=== PATIENT | male | born 1990 | race Caucasian/White ===

== ENCOUNTER 2017-05-06 11:12 | Emergency (ER) | payer OTHER, SELFPAY ==
[2017-05-06 11:12] VITALS: BP 142/91; PULSE 71; RESP 16; TEMP 36.7; O2SAT 96; BMI 33.4
[2017-05-06 11:19] VITALS: BP 150/93; PULSE 72; RESP 14; O2SAT 97
[2017-05-06] MEDS: Ketorolac 30 MG/ML Syringe IV (12:08)
[2017-05-06] MEDS: 0.9% Normal Saline 1,000 ML 1000 ML IV (12:08)
[2017-05-06] MEDS: Ondansetron 4 MG/2 ML Vial IV (12:08)
[2017-05-06 12:25] LABS: Absolute Lymphocyte Count 1.55 X10^3/ul (0.83-4.51); Absolute Neutrophil Count 8.5 X10^3/uL (2.0-7.7); Basophil# 0.03 X10^3/uL; Basophil% 0.3 % (0-1); Eosinophil# 0.06 X10^3/uL; Eosinophils% 0.6 % (0-5); Hematocrit 47.2 % (40-54); Hemoglobin 16.6 g/dl (13.0-16.5); Lymphocyte # 1.55 X10^3/ul (4.0); Lymphocyte % 14.5 % (19-41); Mean Corp Hgb Conc 35.2 g/gl (32-36); Mean Corpuscular Hgb 30.9 pg (27.0-32.0); Mean Corpuscular Volume 87.7 fL (80-94); Mean Platelet Vol. 9.1 fl (6.2-12.0); Monocyte# 0.57 X10^3/uL; Monocyte% 5.3 % (0-10); Neutrophil # 8.48 X10^3/uL (2.7-7.7); Neutrophil % 79.1 % (47-70); Platelet Count 272 K/mm3 (150-450); RBC Distribution Width CV 12.5 % (11.6-14.6); RBC Distribution Width SD 40.7 fl (35.1-43.9); Red Blood Count 5.38 M/mm3 (4.6-6.2); White Blood Count 10.7 K/mm3 (4.4-11.0)
[2017-05-06 12:26] LABS: POSITIVE COUNT NO; POSITIVE DIFFERENTIAL NO; POSITIVE MORPHOLOGY NO
[2017-05-06 12:44] LABS: AST(SGOT) 36 U/L (15-37); Alanine Aminotransfer ALT/SGPT 59 U/L (16-61); Albumin, Serum 4.3 g/dL (3.2-5.0); Alkaline Phosphatase 73 U/L (45-117); Anion Gap 9 (5-15); BUN 13 mg/dL (7-18); BUN/Creat Ratio 13.1 RATIO (10-20); Bilirubin, Direct 0.13 mg/dL (0.00-0.30); Calcium,Total 9.2 mg/dL (8.5-10.1); Chloride 102 mmol/L (98-107); EST Glomerular Filtration Rate 96 mL/min (>60); Est Glom Filt Rate - Afr Amer 117 mL/min (>60); Estimated Creatinine Clearance 115.58 ml/min; Glucose 113 mg/dL (74-106); Lipase 163 U/L (73-393); Protein, Total 8.3 g/dL (6.4-8.2); Sodium Level 140 mmol/L (136-145)
--- NOTE | 2017-05-06 13:08 | ED.DCSUM_ITS ---
- ER Visit Summary Date of Service: 05/06/17 Chief Complaint: Abdominal pain History of Present Illness: The patient is a 27 M with no primary care physician. He reports that he has abdominal pain that began 2 days ago. It is a continuous stabbing pain is 10 out of 10 at worst 9 out of 10 currently. Is worsened by bending over. It is relieved by remaining still and stretching out. He has been nausea and vomited 6-7 times in the past few hours and 12 times altogether. There is been no blood. He has had approximately 10 episodes of diarrhea in the past 2 days. No blood in his stools or black tarry stools. Patient reports that his children have been vomiting. Has not been camping out of the country. No possible bad food exposure. Does not drink well water. No recent antibiotic use. Physical Examination: Vitals: Stable. Afebrile. General: Well-nourished and well-developed. Head: Normocephalic atraumatic. Neck: Supple, no lymphadenopathy. No JVD. Nontender. Cardiovascular: Regular rate and rhythm. No murmurs. Respiratory: No respiratory distress. Clear to auscultation bilaterally. Abdominal: Soft, mild epigastric/left upper quadrant/left lower quadrant tenderness to palpation, nondistended, normal bowel sounds. No guarding, rebound, or peritoneal signs. Back: Nontender. Extremities: Nontender, no edema. Skin: Normal color, no rash. Neurologic: Alert and oriented ?3. Cranial nerves II through XII are intact. Normal strength and sensation. Psych: Normal affect. Test Results: CBC is marked for hemoglobin 16.6, segmented neutrophils of 79, lymphocytes of 15. Chem-7 is more for glucose of 113. LFTs marked for total protein of 8.3. Lipase is normal. Emergency Department Course and Treatment: Patient was treated with Toradol and Zofran IV. He is resting comfortably. He has had no vomiting or diarrhea while here. He denies any history of fatty food intolerance. He has no right upper quadrant pain. Treatment Plan: The patient will be discharged with Zofran and instructed to follow-up with Dr. Hardy, who is next on the list for no doc, in 1-2 days if not improving. Return to the emergency department for any worsening symptoms. Disposition: To home in improved and stable condition. Impression: 1. Vomiting/diarrhea. 2. Abdominal pain. This note was generated with [employer] dictation software. It may contain incorrect words, spelling, and punctuation that were not noted in review of the chart prior to signing ED Disposition - Plan for ED Patient: Disposition: Home or Assisted Living Chief Complaint: Abd Pain Instructions: ED Vomiting Diarrhea Nonspecific Ad Prescriptions: Ondansetron [Zofran Odt] 4 mg PO Q8H PRN PRN #10 tablet PRN Reason: Nausea Referrals: Kristina Correa MD [STAFF PHYSICIAN] - 1-2 Days if not improving
[2017-05-06 13:36] VITALS: BP 137/77; PULSE 75; RESP 16; O2SAT 96
== END 2017-05-06 13:38 | disposition home or self-care (01) ==
LOC: ED 11:55
PROVIDERS: Emergency Provider Emergency Medicine
DX: R10.13 Epigastric pain (principal); R10.12 Left upper quadrant pain; R10.32 Left lower quadrant pain; R11.2 Nausea with vomiting, unspecified; R19.7 Diarrhea, unspecified
CPT/HCPCS: 80048; 80076; 83690; 85025; 96361; 96374; 96375; 99283; J7030; A4216; J2405

== ENCOUNTER 2017-05-15 04:48 | Emergency (ER) | payer OTHER, SELFPAY ==
[2017-05-15 04:53] VITALS: BP 128/81; PULSE 82; RESP 16; TEMP 36.6; O2SAT 96; BMI 33.0
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
[2017-05-15 06:07] LABS: Carboxyhemoglobin Frac (CO) 2.8 % (0.0-1.5)
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
[2017-05-15 06:26] VITALS: RESP 16
== END 2017-05-15 06:28 | disposition home or self-care (01) ==
PROVIDERS: Emergency Provider Emergency Medicine
DX: T59.811A Toxic effect of smoke, accidental (unintentional), initial encounter (principal); J68.9 Unspecified respiratory condition due to chemicals, gases, fumes and vapors; Y92.214 College as the place of occurrence of the external cause
CPT/HCPCS: 82375; 99283

== ENCOUNTER → 2018-11-04 17:02 | Outpatient (CLI) | payer OTHER, SELFPAY ==
--- NOTE | 2018-11-04 17:10 | RAD_ITS ---
STUDY: X-RAY - RIGHT KNEE REASON FOR EXAM: Male, 28 years old. Pain TECHNIQUE: 5 view(s) of the knee. COMPARISON: None. FINDINGS: Normal visualized distal femur. Normal visualized proximal tibia and fibula. Normal proximal tibiofibular articulation. Normal medial femorotibial compartment. Normal lateral femorotibial compartment. Normal patellofemoral articulation. The soft tissue structures are unremarkable. RAD/Knee 4 or More Views IMPRESSION: Normal x-ray examination of the knee. Electronically Signed: Heladio Byrne MD at 18:45 EDT , Service support ,
== END ==
PROVIDERS: Family Provider Family Medicine; PCP Family Medicine; Referring Provider Family Medicine; Visit Provider Family Medicine
DX: M25.561 Pain in right knee (principal)
CPT/HCPCS: 73564

== ENCOUNTER 2023-04-26 02:23 | Emergency (ER) | payer OTHER, SELFPAY ==
[2023-04-26 02:23] VITALS: BP 99/44; PULSE 70; RESP 17; TEMP 36.6; O2SAT 98; BMI 35.5
--- NOTE | 2023-04-26 02:29 | RAD_ITS ---
EXAM: XR RIGHT HAND COMPLETE, 3 OR MORE VIEWS CLINICAL INDICATION: trauma TECHNIQUE: Frontal, lateral and oblique views of the right hand. COMPARISON: No relevant prior studies available. FINDINGS: BONES/JOINTS: Mildly displaced fracture ulnar aspect of the tuft of the distal phalanx of the third finger. Preservation of the joint space. No sclerotic or destructive changes observed. SOFT TISSUES: Soft tissue swelling distal third finger. No radiopaque foreign body. RAD/Hand Min 3 Views IMPRESSION: 1. Mildly displaced fracture ulnar aspect of the tuft of the distal phalanx of the third finger. 2. Soft tissue swelling distal third finger. Electronically Signed: Juan Miguel Mena MD at 2:50 EST ,
--- NOTE | 2023-04-26 02:42 | EX.ED.UPPERE ---
HPI History of Present Illness Chief Complaint: Upper Extremity Injury Informant: patient Narrative Narrative: Patient is a [id number] male with no significant past medical history. He states approximately 2 hours prior to arrival he was at work and was placing a weight back onto a weight stand when he pinched his right middle finger between the weight and the stand causing trauma to his finger. He states that there is no numbness tingling or weakness but he sustained a laceration and is unsure if this needs closed and therefore comes in for evaluation. Patient states he is unsure of his tetanus status but does not want one updated at this time as he has low concern for that infection [facility] Home Medications amoxicillin 875 mg-potassium clavulanate 125 mg tablet 1 tab PO BID 7 days #14 tabs 04/26/23 [Rx Last Taken Unknown] Allergy/AdvReac Type Severity Reaction Status Date / Time No Known Allergies Allergy Verified 05/15/17 04:50 Surgical History (Updated 05/06/17 @ 10:41 by Yue Machado) History of removal of cyst Social History (Updated 05/06/17 @ 11:06 by Rg ERVIN, PA) Smoking Status: Never smoker alcohol intake: never ROS ROS ED Constitutional Constitutional ED: Denies chills or fever(s) ENT ENT ED: Denies sore throat Cardiovascular Cardiovascular: Denies chest pain Respiratory/Chest Respiratory/Chest: Denies cough or dyspnea Gastrointestinal Gastrointestinal: Denies abdominal pain, diarrhea, nausea or vomiting Genitourinary Genitourinary ED: Denies dysuria Musculoskeletal Musculoskeletal: Reports other Details: Positive right middle finger pain Integumentary Reports other Details: Positive right middle finger laceration Neurologic Neurologic: Denies headache(s), paresthesias or weakness Hematologic/Lymphatic Hematologic/Lymphatic: Denies easy bleeding or easy bruising EXAM Physical Exam Const Vital Signs: 04/26/23 02:23 Temperature 97.9 F Temperature Source Temporal Pulse Rate 70 Respiratory Rate 17 Blood Pressure 99/44 L Blood Pressure Mean 62 Pulse Ox 98 Oxygen Delivery Method Room Air Positive well nourished and well developed General Appearance ED: well developed HEENT HEENT Narrative: Normocephalic atraumatic Eyes PERRL and EOMs intact bilaterally Neck full ROM and supple Resp normal respiratory effort and clear to auscultation bilaterally Cardio regular rate and regular rhythm Extremity Extremity Narrative: Right upper extremity is neurovascularly intact; AIN/PIN are intact and normal No ligamentous or tendon injury noted No obvious bony deformity or joint effusion Patient has a vertical 1.5 cm laceration to the finger pad of the right third digit that is subcutaneous layer deep without foreign body and minimal ooze of blood There is also a approximately 50% subungual hematoma to the nailbed of the right third digit. Remainder of the exam is normal Neuro oriented x3, CN's II-XII intact bilaterally, moves all extremities and no focal motor deficits Sensorium / Orientation: alert Motor Exam: strength 5/5 throughout Psych mental status grossly normal Skin Skin Narrative: Laceration and soft tissue changes to the right third finger as documented above MDM MDM MDM Narrative Medical decision making narrative: Patient presented to the ER with direct trauma/crush injury to the right third digit. Differential diagnosis is for acute fracture versus tendon laceration versus contusion. Secondary to this an x-ray was obtained which showed a tuft fracture to the third digit but as this is only a tuft fracture there is no need for splinting or stabilization. The patient had a subungual hematoma which was approximately 50% of the nail and therefore this was trephinated as documented below. Also based on the laceration and soft tissue swelling it required closure with sutures. The patient did not have ligamentous or tendon injury or signs of arterial injury so there is no need for emergent orthopedic consultation. As he does have a fracture and laceration who placed on prophylactic antibiotics but otherwise is safe for discharge Patient had the right middle finger cleaned with chlorhexidine. It was anesthetized using 8 mL of 2% lidocaine without epinephrine in digital block fashion. The wound was copiously irrigated with normal saline. Then four 4-0 Ethilon sutures were placed in simple interrupted fashion bring the wound together good approximation. Patient also underwent trephination of the right third digit nail providing expulsion of blood underneath the nailbed. Patient tolerated both suturing and trephination well without complication. History & Record Review Discussion w/independent historian: Patient Radiography Diagnostic Testing: X-ray of the right hand as interpreted by the emergency medicine physician reveals a tuft fracture to the third digit Discharge Plan Triage Chief Complaint: Upper Extremity Injury ED Provider: Adilson Sylvester Dx/Rx/DC Orders Clinical Impression: Closed fracture of tuft of distal phalanx of right middle finger, Subungual hematoma, Laceration of finger of left hand Instructions: ED Laceration, Hand: All Closures, ED Subungual Hematoma Prescriptions: New amoxicillin-pot clavulanate 875-125 mg tablet 1 tab PO BID 7 Days Qty: 14 0RF Primary Care Provider: Wali Nevarez Referrals: aWli Nevarez MD [Primary Care Provider] - Activity Restrictions/Additional Instructions: Please follow-up with Workmen's Comp. or return to the ER in 7 days for suture removal. As you sustained a laceration to your finger and there is a small fracture to the tip of the finger take the antibiotics as directed to prevent infection. Return to the ER should you have any further concerns Disposition Disposition: Home, Self Care Discharge Date/Time: 04/26/23 04:17
[2023-04-26 02:50] VITALS: BP 120/77; PULSE 72; RESP 17; O2SAT 98
[2023-04-26] MEDS: Amox/Clavulanate 875 MG Tablet PO (04:15)
[2023-04-26 04:16] VITALS: BP 138/66; PULSE 78; RESP 15; TEMP 36.3; O2SAT 99
[2023-04-26] MEDS: Lidocaine 2% (20 ml mdv) 20 ML Vial INFILT (04:16)
== END 2023-04-26 04:17 | disposition home or self-care (01) ==
PROVIDERS: Emergency Provider Emergency Medicine; PCP Family Medicine; Visit Provider Emergency Medicine
DX: S62.632A Displaced fracture of distal phalanx of right middle finger, initial encounter for closed fracture (principal); S60.131A Contusion of right middle finger with damage to nail, initial encounter; S61.212A Laceration without foreign body of right middle finger without damage to nail, initial encounter; W23.0XXA Caught, crushed, jammed, or pinched between moving objects, initial encounter
CPT/HCPCS: 73130; 99282